=== PATIENT | female | born 1965 ===

== ENCOUNTER 2018-09-06 16:09 | Emergency (ER) | payer OTHER ==
[2018-09-06 16:27] VITALS: RESP 20; TEMP 98.2
[2018-09-06] MEDS ORDERED: Aspirin 325 mg EC Tablets PO STA (17:28)
[2018-09-06] MEDS ORDERED: Aspirin 325 mg EC Tablets PO ONE (17:41)
[2018-09-06 17:51] LABS: BASO % 0.6 % (0.0-2.0); EOS # 0.1 K/uL (0.0-0.7); EOS % 0.8 % (0.0-4.0); HEMOGLOBIN 12.4 g/dL (11.0-16.0); LYMPH # 2.6 K/uL (1.0-4.3); LYMPH % 39.7 % (20.0-40.0); MEAN CELL VOLUME 84.1 fL (81.0-99.0); MEAN CORPUSCULAR HEMOGLOBIN 27.3 pg (27.0-31.0); MEAN CORPUSCULAR HGB CONC 32.5 g/dL (33.0-37.0); MONO # 0.3 K/uL (0.0-0.8); MONO % 5.3 % (0.0-10.0); NEUT # 3.6 K/uL (1.8-7.0); NEUT % 53.6 % (50.0-75.0); NRBC % 0.1 % (0.0-2.0); RBC 4.56 Mil/uL (3.80-5.20); RED CELL DISTRIBUTION WIDTH 14.2 % (11.5-14.5); WHITE BLOOD COUNT 6.6 K/uL (4.8-10.8)
--- NOTE | 2018-09-06 18:08 | RAD ---
Date of service: 09/06/2018 PROCEDURE: CHEST RADIOGRAPH, 1 VIEW HISTORY: chest pain COMPARISON: None available. FINDINGS: LUNGS: Clear. PLEURA: No pneumothorax or pleural fluid seen. CARDIOVASCULAR: No aortic atherosclerotic calcification present. Normal. OSSEOUS STRUCTURES: No significant abnormalities. VISUALIZED UPPER ABDOMEN: Normal. OTHER FINDINGS: None. IMPRESSION: No active disease.
[2018-09-06 18:17] LABS: ALB/GLOB RATIO 1.6 (1.0-2.1); ALT/SGPT 56 U/L (9-52); AST/SGOT 41 U/L (14-36); BLOOD UREA NITROGEN 12 mg/dL (7-17); CALCIUM 8.9 mg/dl (8.6-10.4); GFR NON-AFRICAN AMERICAN > 60
[2018-09-06 18:24] LABS: B-TYPE NATRIURETIC PEPTIDE 12.9 pg/mL (0-900)
--- NOTE | 2018-09-06 18:33 | C.PDOC ---
History Of Present Illness 52 y/o female with a PMHx of HTN, DM, and HLD presents to the ED, sent in from the clinic for evaluation of intermittent chest pain for 2 years. Patient reports the pain is now constant, left-sided, and radiating to her left shoulder and left arm. Reports some associated SOB with the pain. She has not taken anything for the pain. Patient also reports having an occasional cough. She denies any fevers, chills, diaphoresis, nausea, vomiting, dizziness, or other associated symptoms. No recent long distance travel or prolonged immobilization. Patient reports compliance with her medications. PMD- Dr. Lubna Gerber Time Seen by Provider: 09/06/18 17:07 Chief Complaint (Nursing): Chest Pain History Per: Patient History/Exam Limitations: no limitations Onset/Duration Of Symptoms: Days Current Symptoms Are (Timing): Still Present Quality: "Pain" Associated Symptoms: Dyspnea Past Medical History Reviewed: Historical Data, Nursing Documentation, Vital Signs Vital Signs: Last Vital Signs Temp 98.2 F 09/06/18 16:26 Pulse 82 09/06/18 16:26 Resp 20 09/06/18 16:26 BP 154/91 H 09/06/18 16:26 Pulse Ox 99 09/06/18 16:26 - Medical History PMH: Diabetes, Gastritis, HTN, Hypercholesterolemia, Hyperlipidemia Surgical History: Cholecystectomy Family History: States: Unknown Family Hx - Social History Hx Alcohol Use: No Hx Substance Use: No - Immunization History Hx Tetanus Toxoid Vaccination: Yes Hx Influenza Vaccination: No Hx Pneumococcal Vaccination: No Review Of Systems Except As Marked, All Systems Reviewed And Found Negative. Constitutional: Negative for: Fever, Chills, Sweats Eyes: Negative for: Vision Change Cardiovascular: Positive for: Chest Pain. Negative for: Palpitations Respiratory: Positive for: Cough, Shortness of Breath. Negative for: Pleuritic Pain, Wheezing Gastrointestinal: Negative for: Nausea, Vomiting Musculoskeletal: Negative for: Back Pain Skin: Negative for: Rash Neurological: Negative for: Weakness, Numbness, Headache, Dizziness Physical Exam - Physical Exam Appears: Non-toxic, No Acute Distress, Other (Appears comfortable) Skin: Warm, Dry Head: Atraumatic, Normacephalic Eye(s): bilateral: Normal Inspection, PERRL, EOMI Oral Mucosa: Moist Neck: Normal ROM Chest: Symmetrical, No Tenderness, No Ecchymosis Cardiovascular: Rhythm Regular, No Murmur Respiratory: Normal Breath Sounds, No Rales, No Rhonchi, No Wheezing Gastrointestinal/Abdominal: Soft, No Tenderness, No Distention Extremity: Bilateral: Atraumatic, Normal Color And Temperature Neurological/Psych: Oriented x3, Normal Speech ED Course And Treatment - Laboratory Results Result Diagrams: 09/06/18 17:39 09/06/18 17:39 Lab Results: Troponin I < 0.0120 ng/mL (0.00-0.120) 09/06/18 17:39 NT-Pro-B Natriuret Pep 12.9 pg/mL (0-900) 09/06/18 17:39 Total Bilirubin 0.4 mg/dL (0.2-1.3) 09/06/18 17:39 AST 41 U/L (14-36) H 09/06/18 17:39 ALT 56 U/L (9-52) H 09/06/18 17:39 Alkaline Phosphatase 77 U/L (38-126) 09/06/18 17:39 Total Protein 8.1 g/dL (6.3-8.3) 09/06/18 17:39 Albumin 5.0 g/dL (3.5-5.0) 09/06/18 17:39 Globulin 3.1 gm/dL (2.2-3.9) 09/06/18 17:39 Albumin/Globulin Ratio 1.6 (1.0-2.1) 09/06/18 17:39 ECG: Interpreted By Me, Viewed By Me ECG Rhythm: Sinus Rhythm Interpretation Of ECG: Normal intervals, normal axis, no ST or T wave abnormalities Rate From EC (bpm) O2 Sat by Pulse Oximetry: 99 (RA) Pulse Ox Interpretation: Normal - Other Rad CXR X-Ray: Read By Radiologist Interpretation: Accession No. : [id number]. Patient Name / ID : ANA BAIG / [id number]. Exam Date : 09/06/2018 17:47:04 ( Approved ). Study Comment : Sex / Age : F / 52Y. Creator : Flo Jeronimo MD. Dictator : Flo Jeronimo MD. Heating Element Winder : Safety Companion : Flo Jeronimo MD. Approver2 : Report Date : 09/06/2018 18:04:37. My Comment : . Date of service: 09/06/2018. PROCEDURE: CHEST RADIOGRAPH, 1 VIEW. HISTORY: chest pain. COMPARISON: None available. FINDINGS: LUNGS: Clear. PLEURA: No pneumothorax or pleural fluid seen. CARDIOVASCULAR: No aortic atherosclerotic calcification present. Normal. OSSEOUS STRUCTURES: No signi ficant abnormalities. VISUALIZED UPPER ABDOMEN: Normal. OTHER FINDINGS: None. IMPRESSION: No active disease. Medical Decision Making Medical Decision Making: Plan: --Aspirin PO --Labs --EKG --CXR Disposition - Disposition Disposition Time: 19:10 Condition: STABLE Forms: ARDACO (Beninese) - Clinical Impression Clinical Impression: Chest pain - Scribe Statement The provider has reviewed the documentation as recorded by the Robert Matson Provider Attestation: All medical record entries made by the Chulaibe were at my direction and personally dictated by me. I have reviewed the chart and agree that the record accurately reflects my personal performance of the history, physical exam, medical decision making, and the department course for this patient. I have also personally directed, reviewed, and agree with the discharge instructions and disposition. Physician Patient Turnover Patient Signed Over To: Joan Ignacio (pending repeat trop @[id number])
[2018-09-06 18:37] VITALS: BP 120/63; PULSE 83
[2018-09-06 18:40] VITALS: O2SAT 99
--- NOTE | 2018-09-07 11:25 | CARD ---
APPROVED REPORT Date of service: 09/06/2018 EKG Measurement Heart [id number] <Conclusion> Normal sinus rhythm Normal ECG
== END 2018-09-06 21:32 | disposition home or self-care (01) ==
LOC: C.ER 16:09
DX: R07.9 Chest pain, unspecified (principal)